=== PATIENT | male | born 1935 | race Caucasian/White ===

== ENCOUNTER 2017-05-31 15:57 | Inpatient (IN) | payer MEDICARE ==
[2017-05-31] MEDS ORDERED: IPRATROPIUM-ALBUTEROL 3 ML NEB INHALATION STA (16:22)
[2017-05-31 16:56] LABS: CH 28.4; CHCM 32.6; HCT 34.8 % (39.0-53.0); HDW 2.93; HGB 11.4 gm/dL (13.0-17.5); MCH 28.7 pg (25.0-35.0); MCHC 32.9 g/dL (31.0-37.0); MCV 87.3 fL (80.0-100.0); Mean Platelet Volume 8.7; RBC 3.99 m/uL (4.30-5.90); RDW 15.2 % (11.5-15.5); WBC 6.8 k/uL (3.8-10.6)
[2017-05-31 17:00] LABS: INR 1.2 (<1.2); Prothrombin Time 12.1 sec (9.0-12.0)
[2017-05-31 17:01] LABS: ALT 20 U/L (21-72); AST 16 U/L (17-59); Alkaline Phosphatase 62 U/L (38-126); Anion Gap 11 mmol/L; Blood Urea Nitrogen 19 mg/dL (9-20); Calcium 9.5 mg/dL (8.4-10.2); Carbon Dioxide 25 mmol/L (22-30); Chloride 101 mmol/L (98-107); Glucose 95 mg/dL (74-99); Magnesium 1.1 mg/dL (1.6-2.3); Non-African American GFR(MDRD) 57 (>60 ml/min/1.73 sqM); Potassium 4.6 mmol/L (3.5-5.1); Sodium 137 mmol/L (137-145); Total Bilirubin 0.9 mg/dL (0.2-1.3); Total Protein 6.7 g/dL (6.3-8.2)
[2017-05-31 17:15] LABS: Creatine Kinase <20 U/L (55-170)
--- NOTE | 2017-05-31 17:15 | ED ---
SOB HPI - General Chief Complaint: Shortness of Breath Stated Complaint: fluid retention/LUIS E Time Seen by Provider: 05/31/17 16:22 Source: patient, RN notes reviewed Mode of arrival: ambulatory Limitations: no limitations - History of Present Illness Initial Comments: This 82-year-old with a history of CHF who states she's had shortness of breath. History 4 days. He has orthopnea and exertional dyspnea. He denies any fevers chills or sweats he states he does have peripheral edema. He voices no other complaints this time. MD Complaint: shortness of breath - Related Data Home Medications Medication Instructions Recorded Confirmed Allopurinol [Zyloprim] 100 mg PO DAILY 05/31/17 05/31/17 Amiodarone [Cordarone] 100 mg PO DAILY 05/31/17 05/31/17 Atorvastatin [Lipitor] 40 mg PO DAILY 05/31/17 05/31/17 Carvedilol [Coreg] 25 mg PO BID 05/31/17 05/31/17 Furosemide [Lasix] 20 mg PO DAILY 05/31/17 05/31/17 Spironolactone [Aldactone] 25 mg PO DAILY 05/31/17 05/31/17 metFORMIN HCL [Glucophage] 1,000 mg PO BID 05/31/17 05/31/17 Allergies Allergy/AdvReac Type Severity Reaction Status Date / Time Sulfa (Sulfonamide Allergy Rash/Hives Verified 05/31/17 18:01 Antibiotics) Review of Systems ROS Statement: Those systems with pertinent positive or pertinent negative responses have been documented in the HPI. ROS Other: All systems not noted in ROS Statement are negative. Past Medical History Past Medical History: Heart Failure, Diabetes Mellitus, Hyperlipidemia, Hypertension History of Any Multi-Drug Resistant Organisms: None Reported Past Surgical History: Appendectomy Past Psychological History: No Psychological Hx Reported Smoking Status: Never smoker Past Alcohol Use History: Occasional Past Drug Use History: None Reported General Exam - General Exam Comments Initial Comments: This is a well-developed well-nourished awake alert oriented times 3 male Limitations: no limitations General appearance: alert Head exam: Present: atraumatic, normocephalic, normal inspection Eye exam: Present: normal appearance, PERRL, EOMI. Absent: scleral icterus, conjunctival injection, periorbital swelling ENT exam: Present: normal exam, mucous membranes moist Neck exam: Present: normal inspection. Absent: tenderness, meningismus, lymphadenopathy Respiratory exam: Present: decreased breath sounds. Absent: respiratory distress, wheezes, rales, rhonchi, stridor Cardiovascular Exam: Present: regular rate, normal rhythm, normal heart sounds. Absent: systolic murmur, diastolic murmur, rubs, gallop, clicks GI/Abdominal exam: Present: soft, normal bowel sounds. Absent: distended, tenderness, guarding, rebound, rigid Extremities exam: Present: normal inspection, full ROM, normal capillary refill , pedal edema. Absent: tenderness, joint swelling, calf tenderness Back exam: Present: normal inspection Neurological exam: Present: alert, oriented X3, CN II-XII intact Psychiatric exam: Present: normal affect, normal mood Skin exam: Present: warm, dry, intact, normal color. Absent: rash Course Vital Signs 05/31/17 05/31/17 05/31/17 16:08 16:45 16:56 Temperature 98.2 F Pulse Rate 65 60 60 Respiratory 20 Rate Blood Pressure 111/55 O2 Sat by Pulse 90 L Oximetry 05/31/17 05/31/17 05/31/17 17:10 18:10 19:06 Temperature 98.0 F Pulse Rate 60 60 60 Respiratory 18 18 18 Rate Blood Pressure 123/63 131/66 133/58 O2 Sat by Pulse 95 95 95 Oximetry 05/31/17 05/31/17 19:28 19:40 Temperature Pulse Rate 60 60 Respiratory 18 Rate Blood Pressure 153/71 133/56 O2 Sat by Pulse 96 96 Oximetry - Reevaluation(s) Reevaluation #1: 05/31/17 20:14 Patient remains unchanged. No chest pain so short of breath Medical Decision Making - Medical Decision Making I did discuss findings with the patient family and with Dr. Garcia the patient will be admitted - Lab Data Result diagrams: 05/31/17 16:40 05/31/17 16:40 Lab Results 05/31/17 05/31/17 05/31/17 Range/Units 16:40 16:40 16:40 WBC 6.8 (3.8-10.6) k/uL RBC 3.99 L (4.30-5.90) m/uL Hgb 11.4 L (13.0-17.5) gm/dL Hct 34.8 L (39.0-53.0) % MCV 87.3 (80.0-100.0) fL MCH 28.7 (25.0-35.0) pg MCHC 32.9 (31.0-37.0) g/dL RDW 15.2 (11.5-15.5) % Plt Count 216 (150-450) k/uL Neutrophils % (Manual) 82 % Lymphocytes % (Manual) 14 % Monocytes % (Manual) 3 % Eosinophils % (Manual) 1 % Neutrophils # (Manual) 5.58 (1.3-7.7) k/uL Lymphocytes # (Manual) 0.95 L (1.0-4.8) k/uL Monocytes # (Manual) 0.20 (0-1.0) k/uL Eosinophils # (Manual) 0.07 (0-0.7) k/uL Nucleated RBCs 0 (0-0) /100 WBC Polychromasia Present PT (9.0-12.0) sec INR (<1.2) APTT (22.0-30.0) sec Sodium 137 (137-145) mmol/L Potassium 4.6 (3.5-5.1) mmol/L Chloride 101 (98-107) mmol/L Carbon Dioxide 25 (22-30) mmol/L Anion Gap 11 mmol/L BUN 19 (9-20) mg/dL Creatinine 1.23 (0.66-1.25) mg/dL Est GFR (MDRD) Af Amer >60 (>60 ml/min/1.73 sqM) Est GFR (MDRD) Non-Af 57 (>60 ml/min/1.73 sqM) Glucose 95 (74-99) mg/dL Calcium 9.5 (8.4-10.2) mg/dL Magnesium 1.1 L (1.6-2.3) mg/dL Total Bilirubin 0.9 (0.2-1.3) mg/dL AST 16 L (17-59) U/L ALT 20 L (21-72) U/L Alkaline Phosphatase 62 (38-126) U/L Total Creatine Kinase <20 L (55-170) U/L CK-MB (CK-2) 0.5 (0.0-2.4) ng/mL CK-MB (CK-2) Rel Index Troponin I <0.012 (0.000-0.034) ng/mL NT-Pro-B Natriuret Pep pg/mL Total Protein 6.7 (6.3-8.2) g/dL Albumin 4.0 (3.5-5.0) g/dL 05/31/17 05/31/17 Range/Units 16:40 16:40 WBC (3.8-10.6) k/uL RBC (4.30-5.90) m/uL Hgb (13.0-17.5) gm/dL Hct (39.0-53.0) % MCV (80.0-100.0) fL MCH (25.0-35.0) pg MCHC (31.0-37.0) g/dL RDW (11.5-15.5) % Plt Count (150-450) k/uL Neutrophils % (Manual) % Lymphocytes % (Manual) % Monocytes % (Manual) % Eosinophils % (Manual) % Neutrophils # (Manual) (1.3-7.7) k/uL Lymphocytes # (Manual) (1.0-4.8) k/uL Monocytes # (Manual) (0-1.0) k/uL Eosinophils # (Manual) (0-0.7) k/uL Nucleated RBCs (0-0) /100 WBC Polychromasia PT 12.1 H (9.0-12.0) sec INR 1.2 H (<1.2) APTT 23.0 (22.0-30.0) sec Sodium (137-145) mmol/L Potassium (3.5-5.1) mmol/L Chloride (98-107) mmol/L Carbon Dioxide (22-30) mmol/L Anion Gap mmol/L BUN (9-20) mg/dL Creatinine (0.66-1.25) mg/dL Est GFR (MDRD) Af Amer (>60 ml/min/1.73 sqM) Est GFR (MDRD) Non-Af (>60 ml/min/1.73 sqM) Glucose (74-99) mg/dL Calcium (8.4-10.2) mg/dL Magnesium (1.6-2.3) mg/dL Total Bilirubin (0.2-1.3) mg/dL AST (17-59) U/L ALT (21-72) U/L Alkaline Phosphatase (38-126) U/L Total Creatine Kinase (55-170) U/L CK-MB (CK-2) (0.0-2.4) ng/mL CK-MB (CK-2) Rel Index Troponin I (0.000-0.034) ng/mL NT-Pro-B Natriuret Pep 7190 pg/mL Total Protein (6.3-8.2) g/dL Albumin (3.5-5.0) g/dL - EKG Data -: EKG Interpreted by Me (Atrial paced rhythm of 60. Interval 262 QRS 182 QT since QTC of 494/494) - Radiology Data Radiology results: report reviewed (X-ray did show evidence of layering pleural effusion some compressive atelectasis), image reviewed Critical Care Time Critical Care Time: Yes Critical Care Time: 31 minutes of critical care time which includes initial presentation with history physical labs x-rays reevaluation patient is therapy. Discussion with patient family regarding findings discussed with Dr. Garcia. Admission orders and documentation of the above Disposition Clinical Impression: Congestive heart failure, Hypoxemia, Hypomagnesemia Disposition: ADMITTED IP TO THIS HOSP Condition: Stable Referrals: Gustavo Ford MD [Primary Care Provider] - 1-2 days
[2017-05-31 17:20] LABS: Add Differential Manual Differential
[2017-05-31 17:21] LABS: Nucleated Red Blood Cells 0 /100 WBC (0-0); Polychromasia Present; Total Cells Counted 100
[2017-05-31 17:27] LABS: Creatine Kinase MB 0.5 ng/mL (0.0-2.4); Troponin I <0.012 ng/mL (0.000-0.034)
--- NOTE | 2017-05-31 17:34 | XR ---
EXAMINATION TYPE: XR chest 2V DATE OF EXAM: 05/31/2017 COMPARISON: NONE HISTORY: Shortness of breath. TECHNIQUE: Frontal and lateral views of the chest are obtained. FINDINGS: Retrocardiac opacity obscures the left hemidiaphragm and costophrenic angle. Probable trac e right pleural effusion is seen with a gradient effect. Cardiac silhouette is enlarged. Multilead le ft-sided cardiac device is seen. Lung apices are clear. IMPRESSION: Retrocardiac airspace that may relate to layering pleural effusion and compressive atele ctasis and/or pneumonia in the appropriate clinical setting. No pulmonary vascular congestion. Probab le trace right pleural effusion.
[2017-05-31] MEDS ORDERED: FUROSEMIDE 10 MG/ML 4 ML VIAL IV STA (19:07)
[2017-05-31] MEDS ORDERED: NITROGLYCERIN OINT 1 INCH/GM PACKET TOPICAL STA (19:07)
[2017-05-31] MEDS ORDERED: MAGNESIUM SULFATE-D5W PMX 1 GM in DEXTROSE/WATER 1 100ML.BAG IVPB ONE (20:16)
[2017-05-31] MEDS: SODIUM CHLORIDE 0.9% 1,000 ML IV SCH (20:51)
[2017-05-31 22:09] LABS: Glucose,Whole Blood 111 mg/dL (75-99)
[2017-05-31] MEDS: INSULIN LISPRO (humaLOG) 300 UNIT/3 ML VIAL SQ SCH (22:18)
[2017-05-31] MEDS: CARVEDILOL 12.5 MG TAB PO SCH ×2 (22:18→23:03)
[2017-05-31] MEDS: metFORMIN 500 MG TAB PO SCH ×2 (22:19→23:02)
[2017-05-31] MEDS: NITROGLYCERIN OINT 1 INCH/GM PACKET TOPICAL SCH (22:20)
[2017-06-01 07:41] LABS: Glucose,Whole Blood 93 mg/dL (75-99)
[2017-06-01] MEDS: INSULIN LISPRO (humaLOG) 300 UNIT/3 ML VIAL SQ SCH ×4 (07:51→21:27)
[2017-06-01] MEDS: AMIODARONE 100 MG TAB PO SCH (08:16)
[2017-06-01] MEDS: ALLOPURINOL 100 MG TAB PO SCH (08:16)
[2017-06-01] MEDS: metFORMIN 500 MG TAB PO SCH ×2 (08:16→18:14)
[2017-06-01] MEDS: SPIRONOLACTONE 25 MG TAB PO SCH (08:16)
[2017-06-01] MEDS: CARVEDILOL 12.5 MG TAB PO SCH ×2 (08:16→18:00)
[2017-06-01] MEDS: ATORVASTATIN 40 MG TAB PO SCH (08:17)
[2017-06-01] MEDS: NITROGLYCERIN OINT 1 INCH/GM PACKET TOPICAL SCH ×4 (08:17→21:32)
[2017-06-01 08:48] VITALS: BMI 36.8
[2017-06-01] MEDS ORDERED: FUROSEMIDE 40 MG TAB PO SCH (09:00)
[2017-06-01] MEDS ORDERED: FUROSEMIDE 20 MG TAB PO SCH (09:00)
[2017-06-01 11:08] LABS: Hemoglobin A1C 5.8 % (4.2-6.1)
[2017-06-01] MEDS: MAGNESIUM SULFATE-D5W PMX 1 GM in DEXTROSE/WATER 1 100ML.BAG IVPB SCH ×2 (11:27→13:11)
[2017-06-01 12:26] LABS: Glucose,Whole Blood 99 mg/dL (75-99)
--- NOTE | 2017-06-01 13:20 | P.HPIM ---
History of Present Illness H&P Date: 06/01/17 Chief Complaint: acute systolic heart failure. This is an 82-year-old male one of Dr. Ford with a previous medical history significant for CAD with ischemic cardiomyopathy, post AICD implant patient, hypertension and hypertensive cardio vascular disease, hyperlipidemia, diabetes mellitus type 2, diabetic polyneuropathy, obesity with possible obstructive sleep apnea, patient was brought into the emergency department at [facility] yesterday because of increased shortness breath associated with orthopnea and increased coughing and unable to bring any phlegm up, he had a chest x-ray in the yard that showed acute heart failure, he was started on IV Lasix 40 mg IV push every 12 hours and he was admitted to the hospital, echocardiogram was obtained and cardiology consultation. Review of Systems Constitutional: Reports weight gain, Denies anorexia, Denies chills, Denies lethargy, Denies weakness, Denies weight loss Eyes: denies blurred vision, denies bulging eye, denies decreased vision, denies diplopia Ears: deny: decreased hearing Ears, nose, mouth and throat: Denies dysphagia, Denies neck lump, Denies sore throat, Denies vertigo Cardiovascular: Reports decreased exercise tolerance, Reports dyspnea on exertion, Reports edema, Reports high blood pressure, Reports shortness of breath, Denies chest pain, Denies phlebitis, Denies rapid heart beat, Denies syncope Respiratory: Reports congestion, Reports cough, Reports cough with sputum, Reports dyspnea, Denies sleep apnea, Denies snoring, Denies wheezing Gastrointestinal: Denies abdominal pain, Denies bloating, Denies BRBPR, Denies melena, Denies nausea, Denies vomiting Genitourinary: Reports nocturia, Reports polyuria, Denies dysuria Musculoskeletal: Denies myalgias Musculoskeletal: bilateral: ankle swelling, absent: ankle pain, ankle stiffness , elbow pain, elbow stiffness, elbow swelling, foot pain, foot stiffness, foot swelling, hand pain, hand stiffness, hand swelling, hip pain, hip stiffness, hip swelling, knee pain, knee stiffness, knee swelling, shoulder pain, shoulder stiffness, shoulder swelling, wrist pain, wrist stiffness, wrist swelling Integumentary: Denies pruritus, Denies rash Neurological: Denies numbness, Denies weakness Psychiatric: Denies anxiety, Denies depression Endocrine: Denies fatigue, Denies weight change Past Medical History Past Medical History: Coronary Artery Disease (CAD), Heart Failure, Diabetes Mellitus, Hyperlipidemia, Hypertension, Osteoarthritis (OA) Additional Past Medical History / Comment(s): gout History of Any Multi-Drug Resistant Organisms: None Reported Past Surgical History: AICD, Appendectomy, Bowel Resection, Heart Catheterization Additional Past Surgical History / Comment(s): perf bowel, cataract surgery, left heart catheterization 2, AICD. Past Anesthesia/Blood Transfusion Reactions: No Reported Reaction Past Psychological History: No Psychological Hx Reported Smoking Status: Never smoker Past Alcohol Use History: Occasional Past Drug Use History: None Reported - Past Family History Mother Family Medical History: Congestive Heart Failure (CHF) (mother at age of 82 from congestive heart failure.), Myocardial Infarction ([place]) Additional Family Medical History / Comment(s): passed from [place] Father Family Medical History: Myocardial Infarction ([place]) (father at age 53 from [place].) Brother(s) Family Medical History: Coronary Artery Disease (CAD) (patient has one brother with CAD.) Sister(s) Family Medical History: Coronary Artery Disease (CAD) (patient has one sister who is 90-year-old has history of CABG.) Son(s) Family Medical History: No Reported History (patient has one son no major medical problems.) Medications and Allergies Home Medications Medication Instructions Recorded Confirmed Type Allopurinol [Zyloprim] 100 mg PO DAILY 05/31/17 05/31/17 History Amiodarone [Cordarone] 100 mg PO DAILY 05/31/17 05/31/17 History Atorvastatin [Lipitor] 40 mg PO DAILY 05/31/17 05/31/17 History Carvedilol [Coreg] 25 mg PO BID 05/31/17 05/31/17 History Furosemide [Lasix] 20 mg PO DAILY 05/31/17 05/31/17 History Spironolactone [Aldactone] 25 mg PO DAILY 05/31/17 05/31/17 History metFORMIN HCL [Glucophage] 1,000 mg PO BID 05/31/17 05/31/17 History Allergies Allergy/AdvReac Type Severity Reaction Status Date / Time Sulfa (Sulfonamide Allergy Rash/Hives Verified 05/31/17 18:01 Antibiotics) Physical Exam Vitals: Vital Signs Temp Pulse Pulse Resp BP BP Pulse Ox 06/01/17 07:00 96.6 F L 60 18 117/67 96 05/31/17 22:00 98.2 F 60 20 139/64 94 L 05/31/17 20:44 97.4 F L 60 18 149/69 94 L 05/31/17 19:40 60 133/56 96 05/31/17 19:28 60 18 153/71 96 05/31/17 19:06 98.0 F 60 18 133/58 95 05/31/17 18:10 60 18 131/66 95 05/31/17 17:10 60 18 123/63 95 05/31/17 16:56 60 05/31/17 16:45 60 05/31/17 16:08 98.2 F 65 20 111/55 90 L Intake and Output 05/31/17 06/01/17 06/01/17 22:59 06:59 14:59 Intake Total 300 Output Total 600 1400 Balance -600 -1100 Intake: IV 100 Magnesium Sulfate-D5w Pmx 100 1 gm In Dextrose/Water 1 100ml.bag @ 100 mls/hr IVPB ONCE ONE Rx#: [id number] Oral 200 Output: Urine 600 1400 Other: # Voids 2 Weight 106.594 kg 106.594 kg Patient Weight 06/02/17 06:59 Weight 106.594 kg - Constitutional General appearance: mild distress, obese - EENT Eyes: anicteric sclerae, EOMI, PERRLA, no ptosis, no scleral icterus, normal appearance ENT: no hard of hearing, NA/AT, normal oropharynx, no thrush Ears: bilateral: normal - Neck Neck: no lymphadenopathy, normal ROM, no rigidity, no stridor, no thyromegaly Carotids: bilateral: upstroke delayed Thyroid: bilateral: normal size - Respiratory Respiratory: bilateral: diminished, negative: dullness, rales, rhonchi, wheezing , prolonged expiration - Cardiovascular Rhythm: regular Heart sounds: normal: S1, S2 Abnormal Heart Sounds: systolic murmur, S3 Gallop - Gastrointestinal General gastrointestinal: normal bowel sounds, soft, no splenomegaly, no tenderness, no umbilical hernia, no ventral hernia - Integumentary Integumentary: normal, normal turgor - Neurologic Neurologic: CNII-XII intact - Musculoskeletal Musculoskeletal: strength equal bilaterally - Psychiatric Psychiatric: A&O x's 3, appropriate affect, intact judgment & insight Results CBC & Chem 7: 05/31/17 16:40 05/31/17 16:40 Labs: Abnormal Lab Results - Last 24 Hours (Table) 05/31/17 05/31/17 05/31/17 Range/Units 16:40 16:40 16:40 RBC 3.99 L (4.30-5.90) m/uL Hgb 11.4 L (13.0-17.5) gm/dL Hct 34.8 L (39.0-53.0) % Lymphocytes # (Manual) 0.95 L (1.0-4.8) k/uL PT (9.0-12.0) sec INR (<1.2) POC Glucose (mg/dL) (75-99) mg/dL Magnesium 1.1 L (1.6-2.3) mg/dL AST 16 L (17-59) U/L ALT 20 L (21-72) U/L Total Creatine Kinase <20 L (55-170) U/L 05/31/17 05/31/17 Range/Units 16:40 22:04 RBC (4.30-5.90) m/uL Hgb (13.0-17.5) gm/dL Hct (39.0-53.0) % Lymphocytes # (Manual) (1.0-4.8) k/uL PT 12.1 H (9.0-12.0) sec INR 1.2 H (<1.2) POC Glucose (mg/dL) 111 H (75-99) mg/dL Magnesium (1.6-2.3) mg/dL AST (17-59) U/L ALT (21-72) U/L Total Creatine Kinase (55-170) U/L Thrombosis Risk Factor Assmnt - DVT/VTE Prophylaxis DVT/VTE Prophylaxis: Pharmacologic Prophylaxis ordered, Mechanical Prophylaxis ordered - Choose All That Apply Any of the Below Risk Factors Present?: Yes Each Factor Represents 1 point: Heart failure (<1month), Obesity (BMI >25) Other Risk Factors: Yes Each Risk Factor Represents 3 Points: Age 75 years or older Other congenital or acquired thrombophilia - If yes, enter type in comment: No Thrombosis Risk Factor Assessment Total Risk Factor Score: 5 Thrombosis Risk Factor Assessment Level: High Risk Assessment and Plan Plan: Assessment and plan: 1. Acute systolic heart failure. Admit the patient to the hospital start the patient on Coreg 25 mg orally twice every day, Lasix 40 mg IV push every 12 hours, input and output and daily weight, low-salt diet, spironolactone 25 mg orally once every day, also start the patient on losartan 12.5 mg orally once every day, monitor the patient CMP and magnesium level. 2. Severe hypomagnesemia. Patient was given magnesium sulfate yesterday we will give 2 g of magnesium sulfate IV over 1 hour, recheck medicine level tomorrow morning. 3. CAD with ischemic cardiomyopathy post AICD. Continue patient on Coreg 25 mg orally twice every day, continue patient on aspirin 81 mg orally once every day, continue Lipitor 40 mg orally once every day, continue spironolactone 25 mg orally once every day, continue Lasix 40 mg IV push every 12 hours, continue amiodarone 100 mg orally once every day. 4. Gout. Continue patient on allopurinol 100 mg orally once every day. 5. Diabetes mellitus type 2. Continue patient on metformin 1000 mg orally twice every day, BJM before each meal and at bedtime, sliding scale insulin. 6. Hypertension and hypertensive cardiovascular disease. Continue Coreg 25 mg orally twice every day, start the patient on small dose of losartan 12.5 mg orally once every day. 7. Obesity with possible obstructive sleep apnea. Discussed with the patient the need for polysomnogram. But patient declined. 8. DVT prophylaxis. Continue Lovenox 40 mg subcutaneously every 24 hours. 9. GI prophylaxis. Pepcid 20 mg orally once every day. 10. Full code. 11. Admit to inpatient. Estimate a length of stay 2 midnights.
--- NOTE | 2017-06-01 14:58 | P.CRDCN ---
History of Present Illness Consult reason: congestive heart failure History of present illness: 82-year-old gentleman seen and examined by me. Severe ischemic cardio myopathy and chronic heart failure admitted with orthopnea and upper back discomfort. Significant improvement after starting IV Lasix yesterday with good diuresis. Lungs are clear today. Vitals are stable. First set of cardiac enzymes is normal Follows with Dr. Ford Suggest Continue IV Lasix today switched to by mouth Lasix 40 mg by mouth twice a day tomorrow and increase Aldactone to 50 mg by mouth daily, serial enzymes Maximize heart failure medications and continue to follow Dr. Ford as an outpatient The see full dictation by nurse practitioner Past Medical History Past Medical History: Coronary Artery Disease (CAD), Heart Failure, Diabetes Mellitus, Hyperlipidemia, Hypertension, Osteoarthritis (OA) Additional Past Medical History / Comment(s): gout History of Any Multi-Drug Resistant Organisms: None Reported Past Surgical History: AICD, Appendectomy, Bowel Resection, Heart Catheterization Additional Past Surgical History / Comment(s): perf bowel, cataract surgery, left heart catheterization 2, AICD. Past Anesthesia/Blood Transfusion Reactions: No Reported Reaction Past Psychological History: No Psychological Hx Reported Smoking Status: Never smoker Past Alcohol Use History: Occasional Past Drug Use History: None Reported - Past Family History Mother Family Medical History: Congestive Heart Failure (CHF) (mother at age of 82 from congestive heart failure.), Myocardial Infarction ([place]) Additional Family Medical History / Comment(s): passed from [place] Father Family Medical History: Myocardial Infarction ([place]) (father at age 53 from [place].) Brother(s) Family Medical History: Coronary Artery Disease (CAD) (patient has one brother with CAD.) Sister(s) Family Medical History: Coronary Artery Disease (CAD) (patient has one sister who is 90-year-old has history of CABG.) Son(s) Family Medical History: No Reported History (patient has one son no major medical problems.) Medications and Allergies Home Medications Medication Instructions Recorded Confirmed Type Allopurinol [Zyloprim] 100 mg PO DAILY 05/31/17 05/31/17 History Amiodarone [Cordarone] 100 mg PO DAILY 05/31/17 05/31/17 History Atorvastatin [Lipitor] 40 mg PO DAILY 05/31/17 05/31/17 History Carvedilol [Coreg] 25 mg PO BID 05/31/17 05/31/17 History Furosemide [Lasix] 20 mg PO DAILY 05/31/17 05/31/17 History Spironolactone [Aldactone] 25 mg PO DAILY 05/31/17 05/31/17 History metFORMIN HCL [Glucophage] 1,000 mg PO BID 05/31/17 05/31/17 History Allergies Allergy/AdvReac Type Severity Reaction Status Date / Time Sulfa (Sulfonamide Allergy Rash/Hives Verified 05/31/17 18:01 Antibiotics) Physical Exam Vitals: Vital Signs Temp Pulse Pulse Resp BP BP Pulse Ox 06/01/17 08:00 18 06/01/17 07:00 96.6 F L 60 18 117/67 96 05/31/17 22:00 98.2 F 60 20 139/64 94 L 05/31/17 20:44 97.4 F L 60 18 149/69 94 L 05/31/17 19:40 60 133/56 96 05/31/17 19:28 60 18 153/71 96 05/31/17 19:06 98.0 F 60 18 133/58 95 05/31/17 18:10 60 18 131/66 95 05/31/17 17:10 60 18 123/63 95 05/31/17 16:56 60 05/31/17 16:45 60 05/31/17 16:08 98.2 F 65 20 111/55 90 L Intake and Output 05/31/17 06/01/17 06/01/17 22:59 06:59 14:59 Intake Total 300 Output Total 600 1400 Balance -600 -1100 Intake: IV 100 Magnesium Sulfate-D5w Pmx 100 1 gm In Dextrose/Water 1 100ml.bag @ 100 mls/hr IVPB ONCE ONE Rx#: [id number] Oral 200 Output: Urine 600 1400 Other: # Voids 2 Weight 106.594 kg 106.594 kg Patient Weight 06/02/17 06:59 Weight 106.594 kg Results 05/31/17 16:40 05/31/17 16:40 Cardiac Enzymes 05/31/17 05/31/17 Range/Units 16:40 16:40 AST 16 L (17-59) U/L CK-MB (CK-2) 0.5 (0.0-2.4) ng/mL Troponin I <0.012 (0.000-0.034) ng/mL Coagulation 05/31/17 Range/Units 16:40 PT 12.1 H (9.0-12.0) sec APTT 23.0 (22.0-30.0) sec CBC 05/31/17 Range/Units 16:40 WBC 6.8 (3.8-10.6) k/uL RBC 3.99 L (4.30-5.90) m/uL Hgb 11.4 L (13.0-17.5) gm/dL Hct 34.8 L (39.0-53.0) % Plt Count 216 (150-450) k/uL Comprehensive Metabolic Panel 05/31/17 Range/Units 16:40 Sodium 137 (137-145) mmol/L Potassium 4.6 (3.5-5.1) mmol/L Chloride 101 (98-107) mmol/L Carbon Dioxide 25 (22-30) mmol/L BUN 19 (9-20) mg/dL Creatinine 1.23 (0.66-1.25) mg/dL Glucose 95 (74-99) mg/dL Calcium 9.5 (8.4-10.2) mg/dL AST 16 L (17-59) U/L ALT 20 L (21-72) U/L Alkaline Phosphatase 62 (38-126) U/L Total Protein 6.7 (6.3-8.2) g/dL Albumin 4.0 (3.5-5.0) g/dL Current Medications Generic Name Dose Route Start Last Admin Trade Name Freq PRN Reason Stop Dose Admin Allopurinol 100 mg 06/01/17 09:00 06/01/17 08:16 Zyloprim PO 100 mg DAILY MICHAEL Administration Amiodarone HCl 100 mg 06/01/17 09:00 06/01/17 08:16 Cordarone PO 100 mg DAILY MICHAEL Administration Atorvastatin Calcium 40 mg 06/01/17 09:00 06/01/17 08:17 Lipitor PO 40 mg DAILY MICHAEL Administration Carvedilol 25 mg 05/31/17 21:00 06/01/17 08:16 Coreg PO 25 mg BID-W/MEALS MICHAEL Administration Enoxaparin Sodium 40 mg 06/02/17 09:00 Lovenox SQ DAILY [facility] Famotidine 20 mg 06/02/17 09:00 Pepcid PO DAILY MICHAEL Furosemide 40 mg 06/01/17 21:00 Lasix IV Q12HR MICHAEL Sodium Chloride 1,000 mls @ 20 mls/hr 05/31/17 20:30 05/31/17 20:51 Saline 0.9% IV 20 mls/hr .Q24H MICHAEL Administration Insulin Human Lispro 0 unit 05/31/17 21:00 06/01/17 12:34 Humalog SQ Not Given ACHS [facility] Protocol Losartan Potassium 12.5 mg 06/02/17 09:00 Cozaar PO DAILY MICHAEL Metformin HCl 1,000 mg 05/31/17 21:00 06/01/17 08:16 Glucophage PO 1,000 mg BID-W/MEALS MICHAEL Administration Nitroglycerin 1 inch 05/31/17 22:00 06/01/17 12:34 Nitro-Bid Oint TOPICAL Not Given QID [facility] Spironolactone 25 mg 06/01/17 09:00 06/01/17 08:16 Aldactone PO 25 mg DAILY MICHAEL Administration Intake and Output 05/31/17 06/01/17 06/01/17 22:59 06:59 14:59 Intake Total 300 Output Total 600 1400 Balance -600 -1100 Intake: IV 100 Magnesium Sulfate-D5w Pmx 100 1 gm In Dextrose/Water 1 100ml.bag @ 100 mls/hr IVPB ONCE ONE Rx#: [id number] Oral 200 Output: Urine 600 1400 Other: # Voids 2 Weight 106.594 kg 106.594 kg Patient Weight 06/02/17 06:59 Weight 106.594 kg 05/31/17 16:40 05/31/17 16:40
--- NOTE | 2017-06-01 15:01 | P.CRDCN ---
History of Present Illness Consult date: 06/01/17 History of present illness: This is a 82-year-old pleasant male. Past medical history significant for ischemic cardiomyopathy, AICD, pacemaker, hypertension, hyperlipidemia, CAD , systolic heart failure, diabetes mellitus, hypertensive cardiovascular disease. Patient presents with complaints of shortness of breath worsening over the past 3-4 days. He has also been coughing but unable to clear any phlegm. He also complains of tight feeling in the upper back. He states he gets that from time to time and is usually associated with gas and is relieved with ned mimi. This time the pain didn't go away with ned mimi. The pain ultimately subsided on its own. He is chest pain free at this time. He has an extensive cardiac history. He states his first [place] was approximately 40 years ago he was treated at [facility]. He states he has never received any stents although he has been Upwards of 6 times. He states his heart function is 15%. Those records are available to me at this time. His home medications include Aldactone 25 mg daily, carvedilol 25 mg twice a day, Lipitor 40 mg daily , amiodarone 100 mg daily and Lasix 20 mg daily. He states he's been on amiodarone for upwards of 20 years. From his explanation it sounds like he was suffering from ventricular tachycardia and was placed on this medication. He does not follow regularly with head of marketing. He gets PRESCRIPTION and medication refills from Dr. Ford. He lives in [place] in the winter. EKG done shows LBBB paced. There is no old EKG for comparison. Troponins are normal x 1, BNP 7190. Chest x-ray showed pleural effusion with atelectasis vs pneumonia. No pulmonary congestion. Review of Systems Extensive review of systems performed, negative except mentioned in HPI. Past Medical History Past Medical History: Coronary Artery Disease (CAD), Heart Failure, Diabetes Mellitus, Hyperlipidemia, Hypertension, Osteoarthritis (OA) Additional Past Medical History / Comment(s): gout History of Any Multi-Drug Resistant Organisms: None Reported Past Surgical History: AICD, Appendectomy, Bowel Resection, Heart Catheterization Additional Past Surgical History / Comment(s): perf bowel, cataract surgery, left heart catheterization 2, AICD. Past Anesthesia/Blood Transfusion Reactions: No Reported Reaction Past Psychological History: No Psychological Hx Reported Smoking Status: Never smoker Past Alcohol Use History: Occasional Past Drug Use History: None Reported - Past Family History Mother Family Medical History: Congestive Heart Failure (CHF) (mother at age of 82 from congestive heart failure.), Myocardial Infarction ([place]) Additional Family Medical History / Comment(s): passed from [place] Father Family Medical History: Myocardial Infarction ([place]) (father at age 53 from [place].) Brother(s) Family Medical History: Coronary Artery Disease (CAD) (patient has one brother with CAD.) Sister(s) Family Medical History: Coronary Artery Disease (CAD) (patient has one sister who is 90-year-old has history of CABG.) Son(s) Family Medical History: No Reported History (patient has one son no major medical problems.) Medications and Allergies Home Medications Medication Instructions Recorded Confirmed Type Allopurinol [Zyloprim] 100 mg PO DAILY 05/31/17 05/31/17 History Amiodarone [Cordarone] 100 mg PO DAILY 05/31/17 05/31/17 History Atorvastatin [Lipitor] 40 mg PO DAILY 05/31/17 05/31/17 History Carvedilol [Coreg] 25 mg PO BID 05/31/17 05/31/17 History Furosemide [Lasix] 20 mg PO DAILY 05/31/17 05/31/17 History Spironolactone [Aldactone] 25 mg PO DAILY 05/31/17 05/31/17 History metFORMIN HCL [Glucophage] 1,000 mg PO BID 05/31/17 05/31/17 History Allergies Allergy/AdvReac Type Severity Reaction Status Date / Time Sulfa (Sulfonamide Allergy Rash/Hives Verified 05/31/17 18:01 Antibiotics) Physical Exam Vitals: Vital Signs Temp Pulse Pulse Resp BP BP Pulse Ox 06/01/17 07:00 96.6 F L 60 18 117/67 96 05/31/17 22:00 98.2 F 60 20 139/64 94 L 05/31/17 20:44 97.4 F L 60 18 149/69 94 L 05/31/17 19:40 60 133/56 96 05/31/17 19:28 60 18 153/71 96 05/31/17 19:06 98.0 F 60 18 133/58 95 05/31/17 18:10 60 18 131/66 95 05/31/17 17:10 60 18 123/63 95 05/31/17 16:56 60 05/31/17 16:45 60 05/31/17 16:08 98.2 F 65 20 111/55 90 L Intake and Output 05/31/17 06/01/17 06/01/17 22:59 06:59 14:59 Intake Total 300 Output Total 600 1400 Balance -600 -1100 Intake: IV 100 Magnesium Sulfate-D5w Pmx 100 1 gm In Dextrose/Water 1 100ml.bag @ 100 mls/hr IVPB ONCE ONE Rx#: [id number] Oral 200 Output: Urine 600 1400 Other: # Voids 2 Weight 106.594 kg 106.594 kg Patient Weight 06/02/17 06:59 Weight 106.594 kg GENERAL: This is a 82-year-old pleasant male in no apparent distress at the time of my examination. Obese. HEENT: Head is atraumatic, normocephalic. Pupils are equal, round. Sclerae anicteric. Conjunctivae are clear. Mucous membranes of the mouth are moist. Neck is supple. There is no jugular venous distention. No carotid bruit is heard. LUNGS: Clear to auscultation no wheezes, rales or rhonchi. No chest wall tenderness is noted on palpation or with deep breathing. HEART: Muffled heart sounds. Regular rate and rhythm. S3 gallop appreciated. S1 and S2 heard. ABDOMEN: Soft, nontender. Bowel sounds are heard. No organomegaly noted. EXTREMITIES: 2+ peripheral pulses with no evidence of peripheral edema and no calf tenderness noted. NEUROLOGIC: Patient is awake, alert and oriented x3. Results 05/31/17 16:40 05/31/17 16:40 Cardiac Enzymes 05/31/17 05/31/17 Range/Units 16:40 16:40 AST 16 L (17-59) U/L CK-MB (CK-2) 0.5 (0.0-2.4) ng/mL Troponin I <0.012 (0.000-0.034) ng/mL Coagulation 05/31/17 Range/Units 16:40 PT 12.1 H (9.0-12.0) sec APTT 23.0 (22.0-30.0) sec CBC 05/31/17 Range/Units 16:40 WBC 6.8 (3.8-10.6) k/uL RBC 3.99 L (4.30-5.90) m/uL Hgb 11.4 L (13.0-17.5) gm/dL Hct 34.8 L (39.0-53.0) % Plt Count 216 (150-450) k/uL Comprehensive Metabolic Panel 05/31/17 Range/Units 16:40 Sodium 137 (137-145) mmol/L Potassium 4.6 (3.5-5.1) mmol/L Chloride 101 (98-107) mmol/L Carbon Dioxide 25 (22-30) mmol/L BUN 19 (9-20) mg/dL Creatinine 1.23 (0.66-1.25) mg/dL Glucose 95 (74-99) mg/dL Calcium 9.5 (8.4-10.2) mg/dL AST 16 L (17-59) U/L ALT 20 L (21-72) U/L Alkaline Phosphatase 62 (38-126) U/L Total Protein 6.7 (6.3-8.2) g/dL Albumin 4.0 (3.5-5.0) g/dL Current Medications Generic Name Dose Route Start Last Admin Trade Name Freq PRN Reason Stop Dose Admin Allopurinol 100 mg 06/01/17 09:00 06/01/17 08:16 Zyloprim PO 100 mg DAILY MICHAEL Administration Amiodarone HCl 100 mg 06/01/17 09:00 06/01/17 08:16 Cordarone PO 100 mg DAILY MICHAEL Administration Atorvastatin Calcium 40 mg 06/01/17 09:00 06/01/17 08:17 Lipitor PO 40 mg DAILY MICHAEL Administration Carvedilol 25 mg 05/31/17 21:00 06/01/17 08:16 Coreg PO 25 mg BID-W/MEALS MICHAEL Administration Enoxaparin Sodium 40 mg 06/02/17 09:00 Lovenox SQ DAILY MICHAEL Famotidine 20 mg 06/02/17 09:00 Pepcid PO DAILY MICHAEL Furosemide 40 mg 06/01/17 21:00 Lasix IV Q12HR MICHAEL Sodium Chloride 1,000 mls @ 20 mls/hr 05/31/17 20:30 05/31/17 20:51 Saline 0.9% IV 20 mls/hr .Q24H MICHAEL Administration Insulin Human Lispro 0 unit 09/18/17 21:00 06/01/17 12:34 Humalog SQ Not Given ACHS [facility] Protocol Losartan Potassium 12.5 mg 06/02/17 09:00 Cozaar PO DAILY MICHAEL Metformin HCl 1,000 mg 05/31/17 21:00 06/01/17 08:16 Glucophage PO 1,000 mg BID-W/MEALS MICHAEL Administration Nitroglycerin 1 inch 05/31/17 22:00 06/01/17 12:34 Nitro-Bid Oint TOPICAL Not Given QID MICHAEL Spironolactone 25 mg 06/01/17 09:00 06/01/17 08:16 Aldactone PO 25 mg DAILY MICHAEL Administration Intake and Output 05/31/17 06/01/17 06/01/17 22:59 06:59 14:59 Intake Total 300 Output Total 600 1400 Balance -600 -1100 Intake: IV 100 Magnesium Sulfate-D5w Pmx 100 1 gm In Dextrose/Water 1 100ml.bag @ 100 mls/hr IVPB ONCE ONE Rx#: [id number] Oral 200 Output: Urine 600 1400 Other: # Voids 2 Weight 106.594 kg 106.594 kg Patient Weight 06/02/17 06:59 Weight 106.594 kg 05/31/17 16:40 05/31/17 16:40 EKG Interpretations (text) EKG indicates a left bundle branch block paced rhythm. Assessment and Plan Plan: ASSESSMENT 1. Acute on chronic systolic heart failure 2. Hypomagnesemia 3. Cardiomyophathy with AICD/PM in place 4. DM type 2 5. Essential hypertension 6. Obesity PLAN Continue active diuresis with IV lasix and aldactone. Sodium restriction. Strict I&O's. Oxygen as needed. Continue home medications for blood pressure management. We will adjust lasix dosing tomorrow to PO form if he continues to tolerate and diuresed appropriately. He kindly for this consultation, further recommendations will be based upon clinical course. Nurse Practitioner note has been reviewed, I agree with a documented findings and plan of care. Patient was seen and examined.
[2017-06-01 17:20] LABS: Glucose,Whole Blood 84 mg/dL (75-99)
--- NOTE | 2017-06-01 18:28 | ECHOF ---
Referral Reason:chf MEASUREMENTS -------- HEIGHT: 170.2 cm WEIGHT: 106.1 kg BP: 117/67 RVIDd: 3.4 cm (< 3.3) IVSd: 1.1 cm (0.6 - 1.1) LVIDd: 6.5 cm (3.9 - 5.3) LVPWd: 1.2 cm (0.6 - 1.1) IVSs: 1.2 cm LVIDs: 5.8 cm LVPWs: 1.5 cm LA Diam: 4.8 cm (2.7 - 3.8) LAESV Index (A-L): 39.71 ml/m Ao Diam: 3.4 cm (2.0 - 3.7) AV Cusp: 2.1 cm (1.5 - 2.6) MV EXCURSION: 14.837 mm (> 18.000) MV EF SLOPE: 24 mm/s (70 - 150) EPSS: 2.0 cm MV E Jamie: 1.09 m/s MV DecT: 158 ms MV A Jamie: 0.58 m/s MV E/A Ratio: 1.87 AR PHT: 1155 ms RAP: 5.00 mmHg RVSP: 55.34 mmHg FINDINGS -------- This was a technically difficult study with suboptimal views. The left ventricle is moderately dilated. There is borderline concentric left ventricular hypertrophy. Overall left ventricular systolic function is severely impaired with, an EF between 25 - 30 %. Basal inferior LV wall motion is hypokinetic. Basal inferoseptal LV wall motion is hypokinetic. Curtis looks anurysmal The right ventricle is mildly enlarged. LA is moderately dilated 34-39 ml/m2 The right atrium is normal in size. Contrast use to enhence images There is mild aortic valve sclerosis. There is mild aortic regurgitation. Mild mitral annular calcification present. Moderate mitral regurgitation is present. Mild tricuspid regurgitation present. There is severe pulmonary hypertension. The right ventricular systolic pressure, as measured by Doppler, is 55.34mmHg. Trace/mild (physiologic) pulmonic regurgitation. The aortic root size is normal. The inferior vena cava is mildly dilated. There is no pericardial effusion. CONCLUSIONS -------- 1. This was a technically difficult study with suboptimal views. 2. Contrast use to enhence images 3. There is mild aortic valve sclerosis. 4. There is mild aortic regurgitation. 5. Mild mitral annular calcification present. 6. Moderate mitral regurgitation is present. 7. Mild tricuspid regurgitation present. 8. There is severe pulmonary hypertension. 9. The right ventricular systolic pressure, as measured by Doppler, is 55.34mmHg. 10. Trace/mild (physiologic) pulmonic regurgitation. 11. The aortic root size is normal. 12. The left ventricle is moderately dilated. 13. The inferior vena cava is mildly dilated. 14. There is no pericardial effusion. 15. There is borderline concentric left ventricular hypertrophy. 16. Basal inferior LV wall motion is hypokinetic. 17. Basal inferoseptal LV wall motion is hypokinetic. 18. Curtis looks anurysmal 19. The right ventricle is mildly enlarged. 20. LA is moderately dilated 34-39 ml/m2 21. The right atrium is normal in size. AUTOMOBILE DEALER: Paloma Ramírez RDCS
[2017-06-01 20:55] LABS: Glucose,Whole Blood 122 mg/dL (75-99)
[2017-06-01] MEDS: FUROSEMIDE 10 MG/ML 4 ML VIAL IV SCH (21:33)
[2017-06-01] MEDS: SODIUM CHLORIDE 0.9% 1,000 ML IV SCH (21:34)
[2017-06-02 07:54] LABS: Glucose,Whole Blood 105 mg/dL (75-99)
[2017-06-02 08:05] VITALS: BP 112/50; PULSE 86; RESP 18; TEMP 97.1
[2017-06-02 08:25] LABS: ALT 22 U/L (21-72); AST 15 U/L (17-59); Alkaline Phosphatase 64 U/L (38-126); Anion Gap 9 mmol/L; Blood Urea Nitrogen 19 mg/dL (9-20); Carbon Dioxide 35 mmol/L (22-30); Chloride 94 mmol/L (98-107); Glucose 90 mg/dL (74-99); Magnesium 1.3 mg/dL (1.6-2.3); Non-African American GFR(MDRD) >60 (>60 ml/min/1.73 sqM); Potassium 3.8 mmol/L (3.5-5.1); Sodium 138 mmol/L (137-145); Total Bilirubin 0.8 mg/dL (0.2-1.3); Total Protein 6.5 g/dL (6.3-8.2)
[2017-06-02 08:31] LABS: Aty Lym Flag Slight; CHCM 32.3; HCT 32.9 % (39.0-53.0); HDW 2.96; Hypochromasia Slight; MCH 29.2 pg (25.0-35.0); MCHC 33.6 g/dL (31.0-37.0); MCV 87.1 fL (80.0-100.0); Mean Platelet Volume 7.5; RBC 3.77 m/uL (4.30-5.90); WBC 5.9 k/uL (3.8-10.6); WBC (Perox) 6.12
[2017-06-02] MEDS: NITROGLYCERIN OINT 1 INCH/GM PACKET TOPICAL SCH ×2 (08:43→11:14)
[2017-06-02] MEDS: AMIODARONE 100 MG TAB PO SCH (08:45)
[2017-06-02] MEDS: ATORVASTATIN 40 MG TAB PO SCH (08:45)
[2017-06-02] MEDS: CARVEDILOL 12.5 MG TAB PO SCH (08:45)
[2017-06-02] MEDS: metFORMIN 500 MG TAB PO SCH (08:46)
[2017-06-02] MEDS: FUROSEMIDE 10 MG/ML 4 ML VIAL IV SCH (08:46)
[2017-06-02] MEDS: INSULIN LISPRO (humaLOG) 300 UNIT/3 ML VIAL SQ SCH ×2 (08:46→12:26)
[2017-06-02] MEDS: SPIRONOLACTONE 25 MG TAB PO SCH (08:46)
[2017-06-02] MEDS: ALLOPURINOL 100 MG TAB PO SCH (08:46)
[2017-06-02] MEDS ORDERED: LOSARTAN 25 MG TAB PO SCH (09:00)
[2017-06-02] MEDS ORDERED: ENOXAPARIN 40 MG/0.4 ML SYRINGE SQ SCH (09:00)
[2017-06-02] MEDS ORDERED: FAMOTIDINE 20 MG TAB PO SCH (09:00)
[2017-06-02 11:08] LABS: Add Differential Manual Differential
[2017-06-02 11:11] LABS: Manual Review Performed; Nucleated Red Blood Cells 0 /100 WBC (0-0); Total Cells Counted 100
[2017-06-02] MEDS: MAGNESIUM SULFATE-D5W PMX 1 GM in DEXTROSE/WATER 1 100ML.BAG IVPB SCH ×2 (11:12→12:26)
[2017-06-02 11:30] LABS: Glucose,Whole Blood 96 mg/dL (75-99)
--- NOTE | 2017-06-02 12:41 | P.DS ---
Providers Date of admission: 05/31/17 20:17 Expected date of discharge: 06/02/17 Attending physician: Emeterio Garcia Consults: 06/01/17 10:24 Consult Physician Routine Consulting Provider: Timmy Preciado Consult Reason/Comments: chf Do you want consulting provider notified?: Yes Primary care physician: Gustavo Ford [facility] Course: This is an 82-year-old male one of Dr. Ford with a previous medical history significant for CAD with ischemic cardiomyopathy, post AICD implant patient, hypertension and hypertensive cardio vascular disease, hyperlipidemia, diabetes mellitus type 2, diabetic polyneuropathy, obesity with possible obstructive sleep apnea, patient was brought into the emergency department at [facility] yesterday because of increased shortness breath associated with orthopnea and increased coughing and unable to bring any phlegm up, he had a chest x-ray in the yard that showed acute heart failure, he was started on IV Lasix 40 mg IV push every 12 hours and he was admitted to the hospital, echocardiogram was obtained and cardiology consultation. 06/02: Echocardiogram reveals a suboptimal views, mild aortic regurgitation and mild aortic valve sclerosis, moderate mitral regurgitation, mild tricuspid regurgitation, severe pulmonary hypertension, borderline concentric left ventricular hypertrophy, L a moderately dilated 34-39, apex looks aneurysmal, EF 25-30%. Lasix is currently at 40 mg IV every 12 hours and Aldactone 25 mg daily. A shunt has been seen by Dr. Galvez with recommendations to start oral Lasix today and increase Aldactone to 50 mg daily. Patient's breathing status is much improved and he is requesting to go home. Patient will be discharged home today in stable condition. Discharge diagnoses: 1. Acute on chronic systolic heart failure. 2. Severe hypomagnesemia. 3. CAD with ischemic cardiomyopathy post AICD. 4. Gout, unspecified. 5. Diabetes mellitus type 2. 6. Hypertension and hypertensive cardiovascular disease. 7. Obesity with possible obstructive sleep apnea. Discussed with the patient the need for polysomnogram. But patient declined. Discharge plan: Return home Impression and plan of care have been directed as dictated by the signing physician. Nasrin Shen nurse practitioner acting as scribe for signing physician. Patient Condition at Discharge: Good Plan - Discharge Summary New Discharge Prescriptions: New Losartan [Cozaar] 12.5 mg PO DAILY #30 tab Spironolactone [Aldactone] 50 mg PO DAILY #60 tab Furosemide [Lasix] 40 mg PO DAILY #60 tablet Magnesium 400 mg PO DAILY #60 tablet Continue metFORMIN HCL [Glucophage] 1,000 mg PO BID Carvedilol [Coreg] 25 mg PO BID Amiodarone [Cordarone] 100 mg PO DAILY Spironolactone [Aldactone] 25 mg PO DAILY Atorvastatin [Lipitor] 40 mg PO DAILY Allopurinol [Zyloprim] 100 mg PO DAILY Discharge Medication List Allopurinol [Zyloprim] 100 mg PO DAILY 05/31/17 [History] Amiodarone [Cordarone] 100 mg PO DAILY 05/31/17 [History] Atorvastatin [Lipitor] 40 mg PO DAILY 05/31/17 [History] Carvedilol [Coreg] 25 mg PO BID 05/31/17 [History] Spironolactone [Aldactone] 25 mg PO DAILY 05/31/17 [History] metFORMIN HCL [Glucophage] 1,000 mg PO BID 05/31/17 [History] Furosemide [Lasix] 40 mg PO DAILY #60 tablet 06/02/17 [Rx] Losartan [Cozaar] 12.5 mg PO DAILY #30 tab 06/02/17 [Rx] Magnesium 400 mg PO DAILY #60 tablet 06/02/17 [Rx] Spironolactone [Aldactone] 50 mg PO DAILY #60 tab 06/02/17 [Rx] Follow up Appointment(s)/Referral(s): Jhony Bishop MD [STAFF PHYSICIAN] - 06/07/17 4:00 pm Gustavo Ford MD [Primary Care Provider] - 06/08/17 1:00 pm Patient Instructions/Handouts: Heart Failure (DC) Activity/Diet/Wound Care/Special Instructions: Cardiac, diabetic diet. Limited activity until follow up, fall precautions. Discharge Disposition: HOME SELF-CARE
[2017-06-02] MEDS ORDERED: FUROSEMIDE 40 MG TAB PO SCH (16:00)
[2017-06-03] MEDS ORDERED: SPIRONOLACTONE 25 MG TAB PO SCH (09:00)
== END 2017-06-02 14:46 | disposition home or self-care (01) | DRG 293 ==
LOC: EC 15:57 → 4MS4W 20:17
PROVIDERS: ADMIT Internal Medicine; ATTEND Internal Medicine
DX: I11.0 Hypertensive heart disease with heart failure (principal); E11.42 Type 2 diabetes mellitus with diabetic polyneuropathy; I27.2 Other secondary pulmonary hypertension; E83.42 Hypomagnesemia; I36.1 Nonrheumatic tricuspid (valve) insufficiency; I25.5 Ischemic cardiomyopathy; I50.23 Acute on chronic systolic (congestive) heart failure; I35.8 Other nonrheumatic aortic valve disorders; R09.02 Hypoxemia; I25.2 Old myocardial infarction; I35.1 Nonrheumatic aortic (valve) insufficiency; I25.10 Atherosclerotic heart disease of native coronary artery without angina pectoris; I34.0 Nonrheumatic mitral (valve) insufficiency; M10.9 Gout, unspecified; G47.33 Obstructive sleep apnea (adult) (pediatric); I44.7 Left bundle-branch block, unspecified; M19.90 Unspecified osteoarthritis, unspecified site; E66.9 Obesity, unspecified; E78.5 Hyperlipidemia, unspecified; Z79.899 Other long term (current) drug therapy; Z79.84 Long term (current) use of oral hypoglycemic drugs; Z82.49 Family history of ischemic heart disease and other diseases of the circulatory system; Z86.79 Personal history of other diseases of the circulatory system; Z88.2 Allergy status to sulfonamides; Z87.19 Personal history of other diseases of the digestive system; Z71.3 Dietary counseling and surveillance; Z91.19 Patient's noncompliance with other medical treatment and regimen; Z90.49 Acquired absence of other specified parts of digestive tract; Z98.49 Cataract extraction status, unspecified eye; Z95.810 Presence of automatic (implantable) cardiac defibrillator
CPT/HCPCS: 36415; 71020; 80053; 82550; 82553; 83036; 83735; 83880; 84439; 84443; 84484; 85025; 85379; 85610; 85730; 93306; 94640; 96374; 99291